=== PATIENT | male | born 1945 | race Caucasian/White ===

== ENCOUNTER → 2016-06-15 09:29 | Outpatient (CLI) | payer MEDICARE ==
[2016-06-15 10:29] LABS: HEMOGLOBIN A1C 5.7 % (4.8-6.0)
[2016-06-15 10:42] LABS: INR 2.99 (0.85-1.17); PROTIME 31.3 SECONDS (11.6-15.0)
== END | disposition home or self-care (01) ==
LOC: D.LAB 09:29
PROVIDERS: Family Medicine
DX: E78.5 Hyperlipidemia, unspecified (principal); E11.9 Type 2 diabetes mellitus without complications; I82.409 Acute embolism and thrombosis of unspecified deep veins of unspecified lower extremity

== ENCOUNTER → 2016-10-10 08:54 | Outpatient (CLI) | payer MEDICARE ==
[2016-10-10 09:17] LABS: BASOPHILS 0.2 % (0-2); EOSINOPHILS 2.9 % (0-7); HEMATOCRIT 40.4 % (42.0-54.0); HEMOGLOBIN 13.9 g/dL (13.5-17.5); IMMATURE GRANULOCYTES 0.2 % (0-5); LYMPHOCYTES 29.4 % (15-50); MCH 32.9 pg (26.0-34.0); MCHC 34.4 g/dL (31.0-37.0); MCV 95.7 fL (80.0-100.0); MEAN PLATELET VOLUME 9.7 fL (7.4-10.4); MONOCYTES 10.9 % (2-11); NEUTROPHILS 56.4 % (40-80); PLATELET COUNT 217 10x3/uL (130-400); RBC 4.22 10x6/uL (4.20-6.10); RDW 12.4 % (11.5-14.5); WBC 5.1 10x3/uL (4.8-10.8)
[2016-10-10 09:24] LABS: HEMOGLOBIN A1C 5.8 % (4.8-6.0)
[2016-10-10 09:27] LABS: INR 2.45 (0.85-1.17); PROTIME 26.7 SECONDS (11.6-15.0)
[2016-10-10 09:44] LABS: ALBUMIN 4.1 g/dL (3.4-5.0); ALKALINE PHOSPHATASE 39 U/L (46-116); ALT (SGPT) 27 U/L (10-68); CALC OSMOLALITY 262 mosm/kg (275-300); CALCIUM 9.5 mg/dL (8.5-10.1); CARBON DIOXIDE 30.1 mmol/L (21.0-32.0); CHLORIDE - SERUM 94 mmol/L (98-107); CHOL - HDL RATIO 2.1 ratio (2.3-4.9); CHOLESTEROL, TOTAL 140 mg/dL (0-200); CREATININE - SERUM 0.9 mg/dL (0.6-1.3); GLUCOSE 112 mg/dL (74-106); HDL CHOLESTEROL 68 mg/dL (32-96); LDL CHOLESTEROL 67 mg/dL (0-100); POTASSIUM - SERUM 4.7 mmol/L (3.5-5.1); PROTEIN - SERUM 7.3 g/dL (6.4-8.2); SODIUM 131 mmol/L (136-145); TRIGLYCERIDE 26 mg/dL (30-200); UREA NITROGEN 10 mg/dL (7-18); eGFR NON AFRICAN AMERICAN 88 mL/min (90-120)
== END | disposition home or self-care (01) ==
LOC: D.LAB 08:30
PROVIDERS: Family Medicine
DX: Z00.00 Encounter for general adult medical examination without abnormal findings (principal); E78.81 Lipoid dermatoarthritis; E11.9 Type 2 diabetes mellitus without complications; I10 Essential (primary) hypertension; G58.9 Mononeuropathy, unspecified; Z79.01 Long term (current) use of anticoagulants

== ENCOUNTER → 2017-02-08 09:25 | Outpatient (CLI) | payer MEDICARE ==
[2017-02-08 10:13] LABS: INR 2.92 (0.85-1.17); PROTIME 30.7 SECONDS (11.6-15.0)
== END | disposition home or self-care (01) ==
LOC: D.LAB 09:25
PROVIDERS: Family Medicine
DX: E11.9 Type 2 diabetes mellitus without complications (principal); I26.99 Other pulmonary embolism without acute cor pulmonale

== ENCOUNTER → 2017-10-09 08:53 | Outpatient (CLI) | payer MEDICARE ==
[2017-10-09 09:33] LABS: BASOPHILS 0.2 % (0-2); HEMATOCRIT 39.5 % (42.0-54.0); HEMOGLOBIN 13.8 g/dL (13.5-17.5); IMMATURE GRANULOCYTES 0.2 % (0-5); LYMPHOCYTES 29.8 % (15-50); MCH 33.3 pg (26.0-34.0); MCHC 34.9 g/dL (31.0-37.0); MCV 95.4 fL (80.0-100.0); MEAN PLATELET VOLUME 10.1 fL (7.4-10.4); MONOCYTES 11.9 % (2-11); NEUTROPHILS 54.9 % (40-80); PLATELET COUNT 235 10x3/uL (130-400); RBC 4.14 10x6/uL (4.20-6.10); RDW 12.6 % (11.5-14.5); WBC 5.7 10x3/uL (4.8-10.8)
[2017-10-09 09:39] LABS: APPEARANCE CLEAR (CLEAR); COLOR DY (YELLOW)
[2017-10-09 09:41] LABS: BILIRUBIN NEGATIVE (NEGATIVE); GLUCOSE NEGATIVE (NEGATIVE); KETONE SMALL mg/dL (NEGATIVE); NITRITE NEGATIVE (NEGATIVE); PROTEIN 1+ mg/dL (NEGATIVE); WHITE CELLS - URINE 0-5 /hpf (0-5)
[2017-10-09 09:42] LABS: BACTERIA FEW /hpf (NONE SEEN); EPITHELIAL CELLS 0-5 /hpf (0-5); MUCUS <1+ /lpf (NONE SEEN); RED CELLS - URINE RARE /hpf (0-5)
[2017-10-09 09:47] LABS: ALBUMIN 3.8 g/dL (3.4-5.0); ANION GAP 13.8 mmol/L (8-16); BILIRUBIN - TOTAL 0.81 mg/dL (0.2-1.3); CALCIUM 9.2 mg/dL (8.5-10.1); CARBON DIOXIDE 28.6 mmol/L (21.0-32.0); CHOL - HDL RATIO 2.4 ratio (2.3-4.9); CREATININE - SERUM 1.2 mg/dL (0.6-1.3); LDL-HDL RATIO 1.2 ratio (1.5-3.5); POTASSIUM - SERUM 4.4 mmol/L (3.5-5.1); PROTEIN - SERUM 7.7 g/dL (6.4-8.2)
[2017-10-09 09:51] LABS: INR 2.41 (0.85-1.17); PROTIME 25.6 SECONDS (11.6-15.0)
== END | disposition home or self-care (01) ==
LOC: D.LAB 08:45
PROVIDERS: Family Medicine
DX: Z00.00 Encounter for general adult medical examination without abnormal findings (principal); E11.9 Type 2 diabetes mellitus without complications; I82.409 Acute embolism and thrombosis of unspecified deep veins of unspecified lower extremity; E78.81 Lipoid dermatoarthritis

== ENCOUNTER → 2018-01-08 10:35 | Outpatient (CLI) | payer MEDICARE ==
[2018-01-08 11:17] LABS: INR 2.84 (0.85-1.17); PROTIME 29.1 SECONDS (11.6-15.0)
== END | disposition home or self-care (01) ==
LOC: D.LAB 10:35
PROVIDERS: Family Medicine
DX: I82.401 Acute embolism and thrombosis of unspecified deep veins of right lower extremity (principal); E11.9 Type 2 diabetes mellitus without complications

== ENCOUNTER → 2018-06-06 10:07 | Outpatient (CLI) | payer MEDICARE ==
[2018-06-06 11:06] LABS: INR 3.02 (0.85-1.17); PROTIME 30.5 SECONDS (11.6-15.0)
== END | disposition home or self-care (01) ==
LOC: D.LAB 10:07
PROVIDERS: Family Medicine
DX: E11.9 Type 2 diabetes mellitus without complications (principal); E78.81 Lipoid dermatoarthritis; I82.409 Acute embolism and thrombosis of unspecified deep veins of unspecified lower extremity; I10 Essential (primary) hypertension

== ENCOUNTER → 2018-12-05 11:43 | Outpatient (CLI) | payer MEDICARE ==
[2018-12-05 12:42] LABS: BASOPHILS 0.2 % (0-2); EOSINOPHILS 1.3 % (0-7); HEMATOCRIT 36.8 % (42.0-54.0); HEMOGLOBIN 13.1 g/dL (13.5-17.5); IMMATURE GRANULOCYTES 0.2 % (0-5); LYMPHOCYTES 33.4 % (15-50); MCH 33.4 pg (26.0-34.0); MCHC 35.6 g/dL (31.0-37.0); MCV 93.9 fL (80.0-100.0); MEAN PLATELET VOLUME 9.8 fL (7.4-10.4); MONOCYTES 11.4 % (2-11); NEUTROPHILS 53.5 % (40-80); PLATELET COUNT 202 10x3/uL (130-400); RBC 3.92 10x6/uL (4.20-6.10); WBC 4.6 10x3/uL (4.8-10.8)
[2018-12-05 12:51] LABS: INR 4.38 (0.85-1.17)
[2018-12-05 13:04] LABS: ALBUMIN 3.8 g/dL (3.4-5.0); ALKALINE PHOSPHATASE 35 U/L (46-116); ALT (SGPT) 47 U/L (10-68); BILIRUBIN - TOTAL 1.05 mg/dL (0.2-1.3); CALC OSMOLALITY 256 mosm/kg (275-300); CALCIUM 9.2 mg/dL (8.5-10.1); CARBON DIOXIDE 29.4 mmol/L (21.0-32.0); CHLORIDE - SERUM 90 mmol/L (98-107); CHOL - HDL RATIO 1.7 ratio (2.3-4.9); CHOLESTEROL, TOTAL 124 mg/dL (0-200); GLUCOSE 88 mg/dL (74-106); HDL CHOLESTEROL 72 mg/dL (32-96); LDL CHOLESTEROL 47 mg/dL (0-100); LDL-HDL RATIO 0.7 ratio (1.5-3.5); POTASSIUM - SERUM 4.4 mmol/L (3.5-5.1); PROTEIN - SERUM 7.3 g/dL (6.4-8.2); SODIUM 128 mmol/L (136-145); THYROID STIMULATING HORMONE 2.28 uIU/mL (0.36-3.74); TRIGLYCERIDE 28 mg/dL (30-200); UREA NITROGEN 14 mg/dL (7-18); eGFR NON AFRICAN AMERICAN 78 mL/min (90-120)
[2018-12-05 13:47] LABS: APPEARANCE CLEAR (CLEAR); COLOR YELLOW (YELLOW)
[2018-12-05 13:48] LABS: BACTERIA FEW /hpf (NONE SEEN); BILIRUBIN NEGATIVE (NEGATIVE); EPITHELIAL CELLS 0-5 /hpf (0-5); GLUCOSE NEGATIVE (NEGATIVE); KETONE SMALL mg/dL (NEGATIVE); MUCUS <1+ /lpf (NONE SEEN); NITRITE NEGATIVE (NEGATIVE); PROTEIN TRACE mg/dL (NEGATIVE); RED CELLS - URINE OCC /hpf (0-5); WHITE CELLS - URINE RARE /hpf (0-5)
[2018-12-06 11:10] LABS: CREATININE - URINE 111.6 mg/dL (Not Estab.); MICROALB/CREAT RATIO 236.8 (0.0-30.0); MICROALBUMIN - URINE 264.3 ug/mL (Not Estab.)
== END | disposition home or self-care (01) ==
LOC: D.LAB 11:43
PROVIDERS: ATTEND Family Medicine
DX: E11.9 Type 2 diabetes mellitus without complications (principal); E78.81 Lipoid dermatoarthritis; Z00.01 Encounter for general adult medical examination with abnormal findings; I82.409 Acute embolism and thrombosis of unspecified deep veins of unspecified lower extremity; I10 Essential (primary) hypertension